=== PATIENT | male | born 1945 | race Caucasian/White ===

== ENCOUNTER → 2016-04-03 | Outpatient (CLI) | payer MEDICARE, OTHER ==
[~2016-04-03] MED LIST: ASPI81TA85 PO; HYDR25TAB PO; LISI-538 PO; OMEP40CA2 PO
[2016-04-03 10:03] LABS: CALCIUM LEVEL 8.7 MG/DL (8.8-10.2); CREATININE FOR GFR 2.5 MG/DL (0.70-1.30); GLOMERULAR FILTRATION RATE 27.2 (>42); POTASSIUM SERUM 4.1 MEQ/L (3.5-5.1)
== END ==
LOC: M WUC 08:39
PROVIDERS: ATTEND Nurse Practitioner Family
DX: I10 Essential (primary) hypertension (principal)

== ENCOUNTER → 2016-04-10 | Outpatient (CLI) | payer MEDICARE, OTHER ==
[2016-04-10 10:27] LABS: CALCIUM LEVEL 8.1 MG/DL (8.8-10.2); CREATININE FOR GFR 1.94 MG/DL (0.70-1.30); GLOMERULAR FILTRATION RATE 36.5 (>42); POTASSIUM SERUM 4.3 MEQ/L (3.5-5.1)
== END ==
LOC: M WUC 08:25
PROVIDERS: ATTEND Nurse Practitioner Family
DX: I10 Essential (primary) hypertension (principal)

== ENCOUNTER → 2016-07-06 | Outpatient (CLI) | payer MEDICARE, OTHER ==
--- NOTE | 2016-07-06 10:19 | REP ---
Clinical: Chronic hypertension and chronic medical renal disease. Technique: Brewster scale and color Doppler evaluation of the kidneys and renal vasculature using curved array transducer. Findings: The kidneys demonstrate increased parenchymal echo texture along with bilateral cysts, but no hydronephrosis, obvious nephrolithiasis or mass lesion. Right kidney measures 11.4 x 6.8 x 7.5 cm with sub centimeter cortical cysts and 1.6 cm lower pole cyst. Left kidney measures 13.2 x 6.1 x 7.4 cm 4.2 cm and 3.0 cm lower pole cysts. Bladder is incompletely distended and grossly normal by current evaluation. Color Doppler evaluation of the renal vasculature demonstrates decreased renal perfusion (left greater than right). Obtainable arterial wave patterns demonstrate normal upstroke at an acceleration times with decreased resistive indices consistent with chronic renovascular disease. No definite sonographic evidence for renal arterial stenosis noted. Right Kidney: Peak arterial velocity: 92 cm/sec . Renal aortic ratio: 0.74 . Resistive indices: 0.51 - 0.61 . Acceleration times: 0.028 - 0.039 . Left kidney: Peak arterial velocity: Not obtainable . Renal aortic ratio: Not obtainable . Resistive indices: 0.45 - 0.57 . Acceleration times: 0.025 - 0.036 . Impression: 1. kidneys demonstrate chronic medical renal disease and scattered cysts as described above without hydronephrosis, obvious nephrolithiasis or renal mass lesion. Chronic renovascular changes are appreciated. 2. Doppler evaluation is significantly limited and demonstrates decreased perfusion likely related to overall chronic medical renal disease and renovascular changes. No definite sonographic evidence to suggest main renal arterial stenosis. Signed by Paco Green MD 07/06/2016 10:11 A
--- NOTE | 2016-07-06 11:07 | REP ---
Nuclear renal scintigraphy with differential flow and function analysis: History: Chronic kidney disease stage III, renovascular hypertension. Technique: 8.8 mCi technetium 99m MAG3 is given intravenously and posterior flow and excretory phase scanning is acquired. Renal cortical regions of interest are drawn and time activity curves are plotted for renal functional analysis. Findings: Posterior flow study shows symmetric perfusion of the kidneys. No intrarenal mass is seen. Excretory phase images show symmetric renal function. There is no evidence of obstructive uropathy. Pre and postvoid images are unremarkable. Differential renal function analysis shows minimal asymmetric renal function with 53% of overall renal cortical counts coming from the left kidney and 47% from the right. Time to peak activity is normal bilaterally at 2.0 minutes. Time to half max activity is somewhat delayed bilaterally. The T1/2 max on the left is 18.9 minutes and that on the right is 17.8 minutes. Impression: Evidence of mildly impaired global renal function bilaterally in the excretory phase. No evidence of obstructive uropathy. Normal symmetric flow. Signed by Mejia Nettles MD 07/06/2016 01:16 P
== END ==
LOC: M RAD 08:26
PROVIDERS: ATTEND Internal Medicine Nephrology
DX: I15.0 Renovascular hypertension (principal); N18.3 Chronic kidney disease, stage 3 (moderate); N28.1 Cyst of kidney, acquired
CPT/HCPCS: 76775; 78707; 93975; A9562

== ENCOUNTER → 2016-08-09 | Outpatient (CLI) | payer MEDICARE, OTHER ==
[2016-08-09 13:05] LABS: ALBUMIN 3.8 GM/DL (3.2-5.2); CALCIUM LEVEL 8.6 MG/DL (8.8-10.2); CREATININE FOR GFR 1.61 MG/DL (0.70-1.30); GLOMERULAR FILTRATION RATE 45.3 (>42); PHOSPHORUS LEVEL 2.7 MG/DL (2.5-4.9); POTASSIUM SERUM 4.1 MEQ/L (3.5-5.1)
== END ==
LOC: M WUC 09:04
PROVIDERS: ATTEND Nurse Practitioner Family
DX: I10 Essential (primary) hypertension (principal)

== ENCOUNTER → 2017-01-19 | Outpatient (REF) | payer MEDICARE, OTHER ==
[2017-01-19 13:48] LABS: BACTERIA, URINE SMALL AMOUNT; HYALINE CAST, URINE NONE SEEN /lpf (0-1); MICROSCOPIC EXAM PERFORMED; RBC, URINE NONE SEEN /hpf (0-3); SQUAMOUS EPITHELIAL CELL URINE SMALL AMOUNT /hpf (SMALL AMT)
== END ==
LOC: M LAB REF 13:00
PROVIDERS: ATTEND Internal Medicine Nephrology
DX: N18.3 Chronic kidney disease, stage 3 (moderate) (principal)

== ENCOUNTER → 2017-02-07 | Outpatient (CLI) | payer MEDICARE, OTHER ==
[2017-02-09 14:13] LABS: PSA TOTAL 1.3 ng/mL (0.0-4.0)
== END ==
LOC: M WUC 08:37
PROVIDERS: ATTEND Nurse Practitioner Family
DX: Z12.5 Encounter for screening for malignant neoplasm of prostate (principal); R73.01 Impaired fasting glucose; E78.4 Other hyperlipidemia

== ENCOUNTER → 2017-12-11 | Outpatient (REF) | payer MEDICARE, OTHER ==
[2017-12-11 22:05] LABS: TOTAL PROTEIN,RANDOM URINE 55.7 MG/DL (0.0-12.0)
== END ==
LOC: M LAB REF 13:11
DX: R80.1 Persistent proteinuria, unspecified (principal)
CPT/HCPCS: 84156

== ENCOUNTER → 2018-07-31 | Outpatient (CLI) | payer MEDICARE ==
[2018-07-31 13:20] LABS: CHOLESTEROL RISK RATIO 3.333 (<5)
== END ==
LOC: M WUC 09:41
PROVIDERS: ATTEND Nurse Practitioner Family
DX: E78.49 Other hyperlipidemia (principal)

== ENCOUNTER → 2018-08-07 | Outpatient (CLI) | payer MEDICARE ==
[2018-08-08 14:20] LABS: PSA TOTAL 1.5 ng/mL (0.0-4.0)
== END ==
LOC: M WUC 08:36
PROVIDERS: ATTEND Nurse Practitioner Family
DX: Z12.5 Encounter for screening for malignant neoplasm of prostate (principal)

== ENCOUNTER → 2018-12-23 | Outpatient (REF) | payer MEDICARE ==
[~2018-12-23] MED LIST changes: -OMEP40CA2 PO; +OMEP40CA97 PO
== END ==
LOC: M LAB REF 13:17
PROVIDERS: ATTEND Internal Medicine Nephrology
DX: R80.1 Persistent proteinuria, unspecified (principal)

== ENCOUNTER → 2019-01-20 | Outpatient (CLI) | payer MEDICARE ==
[2019-01-20 09:55] LABS: CHOLESTEROL RISK RATIO 3.448 (<5)
[2019-01-20 10:09] LABS: HEMOGLOBIN A1c 6.1 %
== END ==
LOC: M WUC 08:26
PROVIDERS: ATTEND Family Medicine
DX: R73.01 Impaired fasting glucose (principal); E78.49 Other hyperlipidemia

== ENCOUNTER → 2019-12-12 | Outpatient (REF) | payer MEDICARE, OTHER ==
[~2019-12-12] MED LIST changes: -ASPI81TA85 PO; +ASPI81TA86 PO
[2019-12-12 18:26] LABS: BACTERIA, URINE AUTO NEGATIVE (NEGATIVE); RBC, URINE AUTO 1 /HPF (0-3); SQUAMOUS EPITHELIAL CELL UR AU 0 /HPF (0-6); WBC, URINE AUTO 1 /HPF (0-3)
[2019-12-12 18:57] LABS: TOTAL PROTEIN,RANDOM URINE 111.3 MG/DL (0.0-12.0)
== END ==
LOC: M LAB REF 17:07
PROVIDERS: ATTEND Internal Medicine Nephrology
DX: R80.1 Persistent proteinuria, unspecified (principal); N18.30 Chronic kidney disease, stage 3 unspecified; R31.21 Asymptomatic microscopic hematuria

== ENCOUNTER → 2020-01-22 | Outpatient (CLI) | payer MEDICARE, OTHER ==
[2020-01-22 16:52] LABS: CHOLESTEROL RISK RATIO 3.754 (<5)
== END ==
LOC: M PLALAB 10:29
PROVIDERS: ATTEND Family Medicine
DX: E78.49 Other hyperlipidemia (principal)

== ENCOUNTER → 2020-05-17 | Outpatient (CLI) | payer MEDICARE, OTHER ==
[~2020-05-17] MED LIST changes: +HYDR-3490 PO; -HYDR25TAB PO; -LISI-538 PO; +LISI20TA33 PO
[2020-05-17 10:26] LABS: HEMATOCRIT 40.2 % (42.0-52.0); HEMOGLOBIN 13.3 g/dl (13.5-17.5); MEAN CORPUSCULAR HEMOGLOBIN 30.7 pg (27.0-33.0); MEAN CORPUSCULAR HGB CONC 33.1 g/dl (32.0-36.5); MEAN CORPUSCULAR VOLUME 92.8 fl (80.0-96.0); PLATELET COUNT, AUTOMATED 234 10^3/uL (150-450); RED BLOOD COUNT 4.33 10^6/uL (4.30-6.10); WHITE BLOOD COUNT 8.4 10^3/uL (4.0-10.0)
[2020-05-17 11:04] LABS: ALBUMIN 3.8 GM/DL (3.2-5.2); BILIRUBIN,TOTAL 0.4 MG/DL (0.2-1.0); CALCIUM LEVEL 8.7 MG/DL (8.8-10.2); CREATININE FOR GFR 1.92 MG/DL (0.70-1.30); GLOMERULAR FILTRATION RATE 36.5 (>42); POTASSIUM SERUM 3.6 MEQ/L (3.5-5.1); TOTAL PROTEIN 6.9 GM/DL (6.4-8.2)
== END ==
LOC: M WUC 08:12
PROVIDERS: ATTEND Family Medicine
DX: Z01.818 Encounter for other preprocedural examination (principal)

== ENCOUNTER → 2020-05-19 | Outpatient (REF) | payer MEDICARE, OTHER ==
[2020-05-19 18:08] LABS: TOTAL PROTEIN 7.1 GM/DL (6.4-8.2)
[2020-05-21 12:11] LABS: ALBUMIN 4.21 GM/DL (3.29-5.55); ALBUMIN % 59.3 % (55.8-66.1); ALPHA-1-GLOBULINS 0.28 GM/DL (0.17-0.41); ALPHA-2-GLOBULINS 0.62 GM/DL (0.42-0.99); ALPHA-2-GLOBULINS % 8.8 % (7.1-11.8); BETA-1-GLOBULINS 0.44 GM/DL (0.28-0.60); BETA-1-GLOBULINS % 6.2 % (4.7-7.2); BETA-2-GLOBULINS 0.37 GM/DL (0.19-0.55); BETA-2-GLOBULINS % 5.2 % (3.2-6.5); GAMMA GLOBULIN % 16.5 % (11.1-18.8); GAMMA GLOBULINS 1.17 GM/DL (0.65-1.58)
[2020-05-21 17:07] LABS: FREE KAPPA LIGHT CHAINS SERUM 35.4 mg/L (3.3-19.4); FREE LAMBDA LIGHT CHAINS SERUM 28.4 mg/L (5.7-26.3); KAPPA/LAMBDA RATIO SERUM 1.25 (0.26-1.65)
== END ==
LOC: M LAB REF 16:52
PROVIDERS: ATTEND Internal Medicine Nephrology
DX: R80.1 Persistent proteinuria, unspecified (principal)

== ENCOUNTER → 2020-09-27 | Outpatient (REF) | payer MEDICARE, OTHER ==
[~2020-09-27] MED LIST changes: +OMEP40CA4 PO; -OMEP40CA97 PO
[2020-09-27 14:20] LABS: BACTERIA, URINE AUTO NEGATIVE (NEGATIVE); RBC, URINE AUTO 0 /HPF (0-3); SQUAMOUS EPITHELIAL CELL UR AU 0 /HPF (0-6); WBC, URINE AUTO 1 /HPF (0-3)
[2020-09-27 14:50] LABS: TOTAL PROTEIN,RANDOM URINE 52.7 MG/DL (0.0-12.0)
== END ==
LOC: M LAB REF 13:29
PROVIDERS: ATTEND Internal Medicine Nephrology
DX: R80.1 Persistent proteinuria, unspecified (principal); N18.32 Chronic kidney disease, stage 3b; R31.21 Asymptomatic microscopic hematuria

== ENCOUNTER → 2021-08-08 | Outpatient (CLI) | payer MEDICARE, OTHER ==
[2021-08-08 13:58] LABS: HEMOGLOBIN A1c 5.9 %
[2021-08-08 14:09] LABS: CHOLESTEROL RISK RATIO 2.686 (<5)
== END ==
LOC: M WUC 09:14
PROVIDERS: ATTEND Family Medicine
DX: E78.49 Other hyperlipidemia (principal); R73.01 Impaired fasting glucose

== ENCOUNTER → 2023-12-31 | Outpatient (CLI) | payer MEDICARE, OTHER ==
[2023-12-31 12:59] LABS: ALBUMIN 3.8 G/DL (3.2-5.2); BILIRUBIN,TOTAL 0.5 MG/DL (0.3-1.2); CALCIUM LEVEL 9.3 MG/DL (8.3-10.6); CHOLESTEROL RISK RATIO 3.09 (<5); CREATININE FOR GFR 2.21 MG/DL (0.70-1.30); GLOMERULAR FILTRATION RATE 30.7 (>42); HDL CHOLESTEROL 47.5 MG/DL (>40); LDL CHOLESTEROL 80.9 MG/DL (<100); NON-HDL-C 99.5 MG/DL; POTASSIUM SERUM 3.8 MMOL/L (3.5-5.1); TOTAL PROTEIN 7.1 G/DL (5.7-8.2)
== END ==
LOC: M WUC 09:08
PROVIDERS: ATTEND Family Medicine
DX: I10 Essential (primary) hypertension (principal); R73.01 Impaired fasting glucose

== ENCOUNTER → 2024-10-13 | Outpatient (CLI) | payer MEDICARE, OTHER ==
[2024-10-13 12:56] LABS: ALT/SGPT 23.0 U/L (7.0-40); AST/SGOT 25.0 U/L (<34); CALCIUM LEVEL 8.7 MG/DL (8.3-10.6); CARBON DIOXIDE LEVEL 30.0 MMOL/L (20-31); CHLORIDE LEVEL 102.0 MMOL/L (98-107); CHOLESTEROL LEVEL 129.0 MG/DL (<200); CHOLESTEROL RISK RATIO 3.11 (<5); CREATININE FOR GFR 3.47 MG/DL (0.70-1.30); GLOMERULAR FILTRATION RATE 17.1 (>35); LDL CHOLESTEROL 65.0 MG/DL (<100); NON-HDL-C 87.6 MG/DL; POTASSIUM SERUM 3.9 MMOL/L (3.5-5.1); SODIUM LEVEL 143.0 MMOL/L (136-145); TRIGLYCERIDES LEVEL 113.0 MG/DL (<150)
[2024-10-13 12:59] LABS: BASO # 0.0 10^3/uL (0.0-0.2); BASO % 0.4 % (0.0-1.0); EOS # 0.2 10^3/uL (0.0-0.5); EOS % 2.4 % (0.0-3.0); LYMPH # 2.1 10^3/uL (1.5-5.0); LYMPH % 21.6 % (24.0-44.0); MONO # 0.9 10^3/uL (0.0-0.8); MONO % 9.1 % (2.0-8.0); NEUTROPHILS # 6.3 10^3/uL (1.5-8.5); NEUTROPHILS % 66.0 % (36.0-66.0); PLATELET COUNT, AUTOMATED 296 10^3/uL (150-450)
[2024-10-13 13:12] LABS: ESTIMATED AVERAGE GLUCOSE 134.0 MG/DL (60-110)
== END ==
LOC: M WUC 08:40
PROVIDERS: ATTEND Family Medicine
DX: I10 Essential (primary) hypertension (principal); R73.01 Impaired fasting glucose

== ENCOUNTER → 2024-10-27 | Outpatient (REF) | payer MEDICARE, OTHER ==
[2024-10-27 18:25] LABS: TOTAL PROTEIN,RANDOM URINE 106.1 MG/DL (0.0-14.0)
== END ==
LOC: M LAB REF 17:08
PROVIDERS: ATTEND Internal Medicine Nephrology
DX: R80.1 Persistent proteinuria, unspecified (principal)

== ENCOUNTER → 2024-11-19 | Outpatient (CLI) | payer MEDICARE, OTHER | LOC: M RAD 16:09 | PROVIDERS: ATTEND Internal Medicine Nephrology | DX: N18.32 Chronic kidney disease, stage 3b (principal) ==